=== PATIENT | male | born 1985 | race African-American/Black ===

== ENCOUNTER 2017-06-27 17:54 | Emergency (ER) | payer OTHER, SELFPAY ==
[~2017-06-27] VITALS: Ht 177.8 cm; Wt 68.0 kg
[2017-06-27 18:09] VITALS: BP 150/85
== END 2017-06-27 19:21 | disposition home or self-care (01) ==
LOC: ED 19:15
DX: J06.9 Acute upper respiratory infection, unspecified (principal); M94.0 Chondrocostal junction syndrome [Tietze]
CPT/HCPCS: 71046; 99284